=== PATIENT | female | born 1960 | race Caucasian/White ===

== ENCOUNTER 2016-10-04 15:48 | Outpatient (CLI) | payer OTHER ==
[2015-09-30 13:17] VITALS: BMI 40.2
== END 2016-10-04 15:49 | disposition home or self-care (01) ==
LOC: LAB 15:48
PROVIDERS: ATTEND Internal Medicine Gastroenterology
DX: R10.9 Unspecified abdominal pain (principal); K21.9 Gastro-esophageal reflux disease without esophagitis
CPT/HCPCS: 36415; 82784; 83516

== ENCOUNTER → 2016-11-22 | Outpatient (POV) ==
[2015-09-30 13:17] VITALS: BMI 40.2
== END ==
LOC: OUTPT 00:01
PROVIDERS: ATTEND Otolaryngology
DX: H69.90 Unspecified Eustachian tube disorder, unspecified ear (principal)
CPT/HCPCS: 92557; 92567

== ENCOUNTER 2016-11-28 10:02 | Outpatient (CLI) ==
[2015-09-30 13:17] VITALS: BMI 40.2
--- NOTE | 2016-11-28 11:17 | DEXA ---
EXAM: Bone Densitometry DEXA HISTORY: Osteoporosis COMPARISON: None FINDINGS: DEXA scan of the lumbar spine was performed. Quality of the study is good. Bone mineral density is 1.044 grams per square centimeter. T-score is negative 1.1. Z-score is negative 1.3. DEXA scan right and left hip was performed. Quality of the study is good. Bone mineral density david n total is 0.793 grams per square centimeter. T-score is negative 1.8. Z-score is negative 1.4. Anup ne mineral density of the femoral neck mean is 0.764 with a T score of negative 1.9 and a Z score of negative 2.0. IMPRESSION: 1. Lumbar spine: Osteopenia. 2. Right and left hip: Osteopenia 3. Right and left femoral neck: Osteopenia 4. 10 year risk for major osteoporotic fracture is 13.9% and for hip fracture is 2.2%. Reference Values according to World Health Organization criteria: T score greater than -1 is normal T score -1 to -2.5 is osteopenia T score less than -2.5 is osteoporosis.
== END 2016-11-28 10:03 | disposition home or self-care (01) ==
LOC: RAD 10:02
PROVIDERS: ATTEND Physician Assistant Medical
DX: M81.0 Age-related osteoporosis without current pathological fracture (principal)

== ENCOUNTER 2017-02-19 10:16 | Outpatient (CLI) ==
[2015-09-30 13:17] VITALS: BMI 40.2
== END 2017-02-19 10:17 | disposition home or self-care (01) ==
LOC: LAB 10:16
PROVIDERS: ATTEND Specialist
DX: R06.02 Shortness of breath (principal)
CPT/HCPCS: 36415; 83880